=== PATIENT | male | born 1965 | race Caucasian/White ===

== ENCOUNTER 2016-10-19 15:09 | Outpatient (CLI) ==
[2013-10-31 05:52] VITALS: BMI 25.0
--- NOTE | 2016-10-19 15:54 | DI ---
Exam: Two x-rays of the chest. Comparison: 10/29/2015. Reason for exam: Simple chronic bronchitis. FINDINGS: No pneumothorax, pleural effusion, or focal consolidation. The cardiac silhouette is not enlarged. The imaged osseous structures appear grossly unremarkable without acute fracture. Impression: No acute cardiopulmonary process.
== END 2016-10-19 15:10 | disposition home or self-care (01) ==
LOC: RAD 15:09
PROVIDERS: ATTEND Nurse Practitioner Family
DX: J41.0 Simple chronic bronchitis (principal)

== ENCOUNTER 2017-08-30 15:19 | Outpatient (CLI) ==
[2013-10-31 05:52] VITALS: BMI 25.0
--- NOTE | 2017-08-30 16:56 | DI ---
EXAM: Chest two views HISTORY: Bronchitis COMPARISON: 10/19/2016 TECHNIQUE: Two views of the chest were performed FINDINGS: The lungs are clear. Lungs are hyperinflated. There is no pleural effusion or pneumothor ax. The heart is normal in size. The mediastinal contour is normal. There are no acute abnormaliti es of the bones. IMPRESSION: 1. No acute cardiopulmonary process. 2. Hyperinflated lungs suggest chronic obstructive pulmonary disease.
== END 2017-08-30 15:20 | disposition home or self-care (01) ==
LOC: RAD 15:19
PROVIDERS: ATTEND Nurse Practitioner Family
DX: J41.0 Simple chronic bronchitis (principal)

== ENCOUNTER 2018-07-24 10:06 | Outpatient (CLI) ==
[2013-10-31 05:52] VITALS: BMI 25.0
--- NOTE | 2018-07-24 10:52 | DI ---
EXAM: Two views of the chest. History: Lung scarring, smoker. Comparison: Chest radiograph 08/30/2017 Findings: Heart size is normal. No focal consolidation. No appreciable pleural fluid and no pneumo thorax. No acute osseous abnormalities. Impression: No acute cardiopulmonary process.
== END 2018-07-24 10:07 | disposition home or self-care (01) ==
LOC: RAD 10:06
PROVIDERS: ATTEND Nurse Practitioner Family
DX: J98.4 Other disorders of lung (principal); J84.9 Interstitial pulmonary disease, unspecified; Z87.891 Personal history of nicotine dependence